=== PATIENT | male | born 1950 | race Caucasian/White ===

== ENCOUNTER 2018-05-14 21:13 | Emergency (ER) | payer BC ==
[~2018-05-14] VITALS: Ht 175.3 cm; Wt 86.0 kg
[~2018-05-14 21:13] MED LIST: KEFLEX500 MG PO
[2018-05-14 21:39] LABS: HEMATOCRIT 24.2 % (38.0-50.0); HEMOGLOBIN 8.5 G/DL (12.5-16.6); MCH 35.6 PG (29.0-34.0); MCHC 35.1 G/DL (30.0-36.0); MCV 101.3 FL (86-99); NRBC (%) 0.2 /100 WBC (0-0); RBC DIS.WIDTH-CV 21.8 % (11.8-14.6); RBC DIS.WIDTH-SD 79.4 % (39-53); RED BLOOD COUNT 2.39 M/uL (4.00-5.50); WHITE BLOOD COUNT 8.5 K/uL (4.1-10.2)
[2018-05-14 21:51] LABS: ALBUMIN 4.2 g/dL (3.2-4.8)
[2018-05-14 21:52] LABS: CHLORIDE 105 mEq/L (99-109); POTASSIUM 4.5 mEq/L (3.7-5.4); SODIUM 139 mEq/L (136-147)
[2018-05-14 21:54] LABS: GLUCOSE 111 mg/dL (70-99); TOTAL PROTEIN 6.4 g/dL (6.4-8.3)
[2018-05-14 21:56] LABS: TOTAL BILIRUBIN 0.9 mg/dL (0.0-1.0)
[2018-05-14 21:57] LABS: ALKALINE PHOSPHATASE 52 IU/L (3-129)
[2018-05-14 21:58] LABS: CREATININE 0.9 mg/dL (0.6-1.3); GFR ESTIMATE (CALCULATED) > 59 mL/min/ (58.99-99999)
[2018-05-14 21:59] LABS: AST (GOT) 23 IU/L (2-34); UREA NITROGEN (BUN) 22 mg/dL (9-23)
[2018-05-14 22:00] LABS: ALT (GPT) 21 IU/L (3-49)
[2018-05-14 22:01] LABS: LIPASE 24 U/L (1.0-51.0)
[2018-05-14 22:13] LABS: APPEARANCE CLEAR ((CLEAR)); BILIRUBIN NEGATIVE; BLOOD SMALL; COLOR YELLOW ((YELLOW)); GLUCOSE (STRIP) NEGATIVE; KETONES NEGATIVE; LEUKOCYTES TRACE; NITRITE NEGATIVE; PROTEIN (STRIP) NEGATIVE; UROBILINOGEN 0.2 MG/DL (0.2-1.0)
[2018-05-14 22:13] LABS: PLAT.SUFFICIENCY ADEQUATE; PLATELET COUNT 333 K/uL (156-360)
[2018-05-14 22:20] LABS: BACTERIA RARE /HPF; EPITHELIAL CELLS RARE /HPF; MUCUS TRACE /LPF; RED BLOOD CELLS 0-5 /HPF (0-5); UCUL ADDED? NO; WHITE BLOOD CELLS 0-5 /HPF (0-5)
[2018-05-15] MEDS ORDERED: PERCOCET 5/31 TABLET PO (00:10)
[2018-05-15] MEDS ORDERED: ZOFRAN ODT4 MG PO (00:10)
[2018-05-15 00:25] VITALS: BP 124/77
== END 2018-05-15 00:26 | disposition home or self-care (01) ==
LOC: EXP 21:13 → EME 21:13 → EXP 05-15 00:26
DX: N13.2 Hydronephrosis with renal and ureteral calculous obstruction (principal); Z87.891 Personal history of nicotine dependence
CPT/HCPCS: 74176; 80053; 81003; 83690; 85027; 99281; 99285; J1885; J2405; J3010; J7030

== ENCOUNTER → 2018-05-18 | Outpatient (CLI) | payer BC ==
[~2018-05-18] MED LIST changes: +PERCOCET 5/31 TABLET PO; +ZOFRAN ODT4 MG PO
== END | disposition home or self-care (01) ==
LOC: CDC 14:20
DX: Z01.810 Encounter for preprocedural cardiovascular examination (principal); R10.9 Unspecified abdominal pain; N13.30 Unspecified hydronephrosis
CPT/HCPCS: 93000